=== PATIENT | male | born 1960 | race Caucasian/White ===

== ENCOUNTER → 2016-11-28 | Outpatient (CLI) | payer OTHER ==
[~2016-11-28] MED LIST: BACL20TA PO; CLB/200 PO; EVER5TAB PO; HYDR-1838 PO; HYDR25TA4 PO; LYR50 PO; NIFE1TAB55 PO; ONDA8TAB6 PO; POLY335040 PO; POTA20TA16 PO; PREG100C PO; PROP120C PO; SIMV40TA2 PO; TEMA15CA4 PO; TEMO100I; TRAM-10 PO; XLD/500 PO
== END | disposition home or self-care (01) ==
LOC: C.LAB1850 16:49
PROVIDERS: ATTEND Internal Medicine
DX: M10.9 Gout, unspecified (principal)

== ENCOUNTER → 2016-12-11 | Outpatient (CLI) | payer OTHER ==
[2016-12-11 12:23] LABS: BASO % 0.5 %; BASO ABS # 0.03 K/uL (0-0.2); COMPLETE YES; EOS % 2.8 %; HEMATOCRIT 43.5 % (42-52); IG% 0.3 %; LYMPH % 27.5 %; LYMPH ABS # 1.65 K/uL (1.2-3.4); MEAN CELL VOLUME 95.4 fL (80-100); MEAN CORPUSCULAR HEMOGLOBIN 33.6 pg (25-34); MEAN CORPUSCULAR HGB CONC 35.2 g/dl (32-36); MEAN PLATELET VOLUME 10.6 fL (7.4-10.4); MONO % 12.6 %; NEUT % 56.3 %; PLATELET COUNT 277 K/uL (130-400); RED BLOOD COUNT 4.56 M/uL (4.7-6.1); WHITE BLOOD COUNT 6.01 K/uL (4.8-10.8)
[2016-12-11 12:37] LABS: ALT/SGPT 73 U/L (12-78); AST/SGOT 38 U/L (15-37); BLOOD UREA NITROGEN 17 mg/dl (7-18); BUN/CREATININE RATIO 13.8 (10-20); CALCIUM 9.3 mg/dl (8.5-10.1); CARBON DIOXIDE 28 mmol/L (21-32); CHLORIDE 103 mmol/L (98-107); CHOLESTEROL 169 mg/dl (0-200); GLUCOSE 115 mg/dl (70-99); POTASSIUM 3.4 mmol/L (3.5-5.1); SODIUM 141 mmol/L (136-145); TRIGLYCERIDES 226 mg/dl (0-150); VERY LOW DENSITY LIPOPROT CALC 45 mg/dl
[2016-12-11 12:47] LABS: ALB/GLOB RATIO 1.1 (0.9-2); ALKALINE PHOSPHATASE 77 U/L (45-117); CHOLESTEROL/HDL RATIO 4.1; HDL CHOLESTEROL 41 mg/dl; LDL CHOLESTEROL CALCULATED 83 mg/dl
[2016-12-11 12:52] LABS: ESTIMATED AVERAGE GLUCOSE 126 mg/dl; HA1C FLAG Normal (Normal)
== END | disposition home or self-care (01) ==
LOC: C.LABBFT 09:09
PROVIDERS: ATTEND Internal Medicine
DX: E78.00 Pure hypercholesterolemia, unspecified (principal); I10 Essential (primary) hypertension; R73.9 Hyperglycemia, unspecified

== ENCOUNTER → 2017-02-13 | Outpatient (CLI) | payer OTHER ==
[~2017-02-13] MED LIST changes: -EVER5TAB PO; +GADAVIST IV PRN; -HYDR-1838 PO; -TEMA15CA4 PO
--- NOTE | 2017-02-13 16:33 | DIAGNOSTIC IMAGING REPORT ---
MRI OF THE LUMBAR SPINE WITH AND WITHOUT CONTRAST CLINICAL HISTORY: Lumbago. Lumbar radiculopathy. Cancer history. COMPARISON STUDY: No previous studies for comparison. TECHNIQUE: Utilizing a 1.5 Tsering magnet and dedicated coil, multiplanar, multiecho imaging of the lumbar spine was performed before and after uneventful IV administration of 12.5 mL of Gadavist. FINDINGS: For purposes of numbering on this exam, the L5-S1 disc space is assigned to axial image 23 of 25. Alignment of the lumbar spine is anatomic. Vertebral body heights are maintained. A 1.3 cm T1 and T2 hypointense abnormality along the superior endplate of L4 suggests a Schmorl's node. There is a 1.4 cm T1 hypointense, slightly T1 hyperintense lesion within the left aspect of S1. There is also an indeterminate 9 mm lesion within the L1 vertebral body and a 7 mm lesion within the T12 vertebral body. At most, there is minimal enhancement of these lesions. There is no intracanalicular mass or fluid collection. There is no abnormal enhancement within the lumbar canal. L1-2: The central canal and neural foramen are patent. L2-3: There is disc bulge eccentric to the left. There is mild narrowing of the left lateral recess and left neural foramen. L3-4: There is mild disc bulge. There is facet arthrosis. Central canal and neural foramen are patent. L4-5: The central canal and neural foramen are patent. L5-S1: There is disc space narrowing with minimal disc bulge. Central canal is patent. There is facet arthrosis. There is mild to moderate narrowing of both neural foramen. IMPRESSION: 1. Mild multilevel degenerative disc disease and facet arthrosis. No central canal stenosis. [id number] multilevel neural foraminal stenosis, as described above. 2. Several indeterminate osseous lesions within the spine, the largest of which is a 1.4 cm S1 lesion. These may be benign; however, metastatic disease is within the differential. A whole body bone scan may be of benefit in further evaluation. Electronically signed by: Tan Benitez M.D. 02/13/2017 4:31 PM Dictated Date/Time: 02/13/2017 12:43 PM
== END | disposition home or self-care (01) ==
LOC: C.MRIBC 09:46
PROVIDERS: ATTEND Physician Assistant
DX: M51.16 Intervertebral disc disorders with radiculopathy, lumbar region (principal)

== ENCOUNTER → 2017-07-12 | Outpatient (CLI) | payer OTHER ==
[~2017-07-12] MED LIST changes: -GADAVIST IV PRN; -LYR50 PO
[2017-07-12 12:16] LABS: BASO % 0.8 %; BASO ABS # 0.04 K/uL (0-0.2); COMPLETE YES; EOS % 3.8 %; IG% 0.4 %; LYMPH % 28.9 %; LYMPH ABS # 1.43 K/uL (1.2-3.4); MEAN CELL VOLUME 96.2 fL (80-100); MEAN CORPUSCULAR HEMOGLOBIN 32.5 pg (25-34); MEAN CORPUSCULAR HGB CONC 33.8 g/dl (32-36); MEAN PLATELET VOLUME 10.7 fL (7.4-10.4); MONO % 12.1 %; PLATELET COUNT 234 K/uL (130-400); RED BLOOD COUNT 4.68 M/uL (4.7-6.1); WHITE BLOOD COUNT 4.94 K/uL (4.8-10.8)
[2017-07-12 12:52] LABS: ESTIMATED AVERAGE GLUCOSE 126 mg/dl; HA1C FLAG Normal (Normal)
[2017-07-12 12:56] LABS: ALT/SGPT 61 U/L (12-78); AST/SGOT 31 U/L (15-37); BLOOD UREA NITROGEN 16 mg/dl (7-18); BUN/CREATININE RATIO 13.1 (10-20); CALCIUM 8.8 mg/dl (8.5-10.1); CARBON DIOXIDE 31 mmol/L (21-32); CHLORIDE 104 mmol/L (98-107); GLUCOSE 118 mg/dl (70-99); POTASSIUM 3.2 mmol/L (3.5-5.1); SODIUM 141 mmol/L (136-145)
[2017-07-12 12:59] LABS: ALB/GLOB RATIO 1.1 (0.9-2); ALKALINE PHOSPHATASE 74 U/L (45-117); CHOLESTEROL 165 mg/dl (0-200); CHOLESTEROL/HDL RATIO 3.9; HDL CHOLESTEROL 42 mg/dl; LDL CHOLESTEROL CALCULATED 83 mg/dl; TRIGLYCERIDES 201 mg/dl (0-150); VERY LOW DENSITY LIPOPROT CALC 40 mg/dl
== END | disposition home or self-care (01) ==
LOC: C.LABBFT 08:08
PROVIDERS: ATTEND Internal Medicine
DX: M10.9 Gout, unspecified (principal); E78.00 Pure hypercholesterolemia, unspecified; R73.01 Impaired fasting glucose; I10 Essential (primary) hypertension

== ENCOUNTER → 2017-10-22 | Outpatient (CLI) | payer OTHER ==
[~2017-10-22] VITALS: Ht 179.1 cm; Wt 132.5 kg
[~2017-10-22] MED LIST changes: -NIFE1TAB55 PO; +NIFE1TAB56 PO
[2017-10-22 13:18] VITALS: BP 127/81; PULSE 62; Ht 179.1 cm; Wt 132.5 kg
== END | disposition home or self-care (01) ==
LOC: C.NEUR 12:44
PROVIDERS: ATTEND Internal Medicine Pulmonary Disease
DX: Z86.69 Personal history of other diseases of the nervous system and sense organs (principal); E66.9 Obesity, unspecified; R53.83 Other fatigue

== ENCOUNTER → 2017-11-06 | Outpatient (CLI) | payer OTHER ==
--- NOTE | 2017-11-07 06:24 | PAP/PSG TECHNICIAN REPORT ---
[facility] Taste Tester Polysomnogram Report Study name: None Report date: 11/07/2017 Study date: 11/06/2017 Referring Physician: DR. OSUNA Name: OSMAN SCRUGGS Interpreting Physician: Richy Osuna M.D. Date of : 1960 Taste Tester: Akshat Griffiths RPSGT. Sex: Male Age: 57 StudyType: PSG PAP Weight: 292 lbs 18.5 inches Height: 57 years, Height 5' 10.5" Neck Circum: BMI: 41.3 Medications: ALLOPURINOL 100 MG, BACLOFEN 20 MG, CAPECITABINE 500 MG, CELECOXIB 200 MG, HYDROCHLOROTHIAZIDE 25 MG, KLOR-CON M20, LYRICA 50 MG, NIFEDIPINE ER OSMOTIC RELEASE 60 MG, PREDNISONE 20 MG, PROPRANOLOL HCL ER 120 MG, SIMVASTATIN 40 MG, TEMOZOLOMIDE 100 MG, TRAMADOL HCL 50 MG Patient History PATIENT HAD A SLEEP STUDY DONE IN 2009 AND WAS POSITIVE FOR JC. HE HAD A CPAP TITRATION DONE AND WAS PUT ON 6CWP. HE ONLY WORE HIS CPAP FOR ABOUT A YEAR THEN DISCONTINUED USE OF IT. HE DISPLAYS SYMPTOMS OF SLEEP APNEA AND IS HERE FOR A CPAP TITRATION. ESS = 16 RM 2 Parameters Monitored NPSG: E1-M2, E2-M1, Fp1-M2, Fp2-M1, F3-M2, F4-M2, F4-M1, C3-M2, C4-M2, C4-M1, O1-M2, O2-M2, O2-M1, T3-M2, T4-M1, P3-M2, P4-M1, CHIN1, CHIN2, HR, EKG, Legs, PFLOW, SNOR, FLOW, CFLOW, Tidal Volume, THOR, ABDO, SpO2, PLTH, CPRESS, ETCO2 Wave, ETCO2, pH Sleep Architecture Sleep Stages Time at Lights Off 10:30:53 PM STAGES Time (min.) TST (%) Time at Lights On 6:00:53 AM Wake 34.5 -- Total Recording Time (TRT) 450.50 min. N1 15.5 4 Total Sleep Period (TSP) 447.5 min. N2 277.5 67 Total Sleep Time (TST) 415.5min. N3 12.0 3 Awake Time 34.5 min. REM 110.5 27 Wake after Sleep Onset 32.0 min. Sleep Efficiency (SE) 92 % Sleep Onset Latency (CARRIE) 2.5 min. Number of Stage 1 Shifts None Awakenings 31 Stage Changes 101 Number of REM periods 6 REM 110.5 27 REM Latency 76.0 min. NREM 305.0 73 Body Position Analysis Supine Right Left Side Prone Vertical Total Sleep Time (min.) 66.8 0.0 366.0 366.00 0.0 0.0 Total Sleep Time (%) 12% 0% 88% 88 0% N/A% Total Sleep Time REM (min.) 0.0 0.0 110.5 None 0.0 0.0 Total Sleep Time NREM (min.) 49.5 0.0 255.5 None 0.0 0.0 Intermittent Wake (min.) 17.3 0.0 17.2 None 0.0 0.0 Total Sleep Period (%) 14% None None None None None Arousals Myoclonus (PLM) * Events Count Index Events Count Index Spontaneous 42 6 Events Awake (PLMW) 33 57.4 Respiratory 29 5.1 Events Asleep w/ Arousal (PLMA) 12 1.7 PLM 11 2 Events Asleep w/o Arousal (PLMS) 74 10.7 Snoring 2 0 Total Asleep 86 12.4 Total 84 12 Total 119 16 Respiratory Analysis * CA OA MA CH H RERA Total Count 59 14 4 0 66 0 143 Index 8.5 2.0 0.6 0 9.5 0 20.6 Mean Duration 23.9 22.7 40.6 0.00 23.4 0.0 24.0 Longest Duration 51.8 35.6 47.5 0.00 47.5 0.0 55.0 Respiratory Event Summary Total Supine ~Supine Right Left Prone REM NREM Apneas Count 77 46 31 N/A 31 N/A 0 77 Index 11.1 56 5 N/A 5.1 N/A 0 15 Hypopneas (4% Desat) Count 66 7 59 N/A 59 N/A 14 52 Index 9.5 8.5 10 N/A 9.7 N/A 7.6 10.2 Apneas & All Hypopneas Count 143 53 90 N/A 90 N/A 14 129 Index 20.6 64 15 N/A 15 N/A 7.6 25.4 Respiratory Events (Stabber+All Hyp+RERA) Count 143 53 90 N/A 90 N/A 14 129 Index 20.6 64 15 N/A 14.8 N/A 7.6 25.4 Respiratory Related Arousal Count 29 53 13 N/A 13 N/A 0 35 Index 5.1 27 2 N/A 2 N/A 0 7 Snoring Analysis Supine Right Left Prone REM NREM Total Snore duration 7.5 min Snores count 5 N/A 334 N/A 6 333 339 Snore mean duration 1.3 Sec Snores index 6 N/A 55 N/A 3.3 65.5 49.0 TST with snoring (%) 1.8% Desaturation Event Summary: Minimum %SpO2 Event Count Mean/Min/Max Duration(sec.) Desaturation Index % Time In Bed > 90 128 30.3 / 9.0 / 60.0 47.9 35.6 86 - 90 36 30.1 / 10.0 / 55.8 9.5 50.3 81 - 85 1 63.1 / 63.1 / 63.1 1.3 10.4 76 - 80 0 N/A 0.0 3.0 71 - 75 1 78.6 / 78.6 / 78.6 44.6 0.3 66 - 70 0 N/A 0.0 0.2 61 - 65 0 N/A 0.0 0.2 56 - 60 0 N/A 0.0 0.0 51 - 55 0 N/A 0.0 0.0 < 50 0 N/A 0.0 0.0 Total REM NREM Awake <50% 0.0 min. 0.0 min. 0.0 min. 0.0 min. 51 - 60% 0.0 min. 0.0 min. 0.0 min. 0.0 min. 61 - 70% 1.7 min. 1.7 min. 0.0 min. 0.0 min. 71 - 80% 14.7 min. 7.1 min. 5.3 min. 2.3 min. 81 - 90% 273.2 min. 91.7 min. 173.7 min. 7.8 min. 91 - 100% 160.3 min. 10.0 min. 126.0 min. 24.4 min. Average 89 87 90 92 Minimum SpO2 61 61 75 75 Desaturation Event Index 19.5 7.6 24.8 15.7 # Desat. Events below 89% 124 14 105 5 Time(%) with Saturation below 89% 40.7 14.7 24.3 1.7 Time(min.) with Saturation below 89% 183.4 66.3 109.5 7.6 Time (mins) REM (mins) NREM (mins) % of TST SpO2 Below 90% 130 14 N116 54.8 SpO2 Below 88% 59 0 0 30 Heart Rate Analysis Min (bpm) Max (bpm) Average (bpm) Awake 49 71 55 NREM 49 63 53 REM 50 62 54 Overall 49 63 53 Supplemental O2 Values Minimum O2 level: None Value Start Time End Time Taste Tester Comments Mr. Scruggs slept in the left and supine positions. PVC's noted. Leg movements noted. No bruxism noted. CPAP was initiated at +4 CMH2O and up-titrated to an level of +[id number]. I switched to BIPAP due to continued central apneas in N2 sleep and high mask leak. I started BIPAP at 11/7 and then added a rate of 12 due to central apneas. I increased the BIPAP up to 18/12 with a rate of 18 due to apneas and some hypops. A [employer] Simplus size large mask was used during titration Mr. Scruggs awoke to use the restroom 0 times during the night. Mr. Scruggs stated I did not sleep as well as I do when I am in my own bed. Patient showed central and mixed sleep apnea predominantly in the supine position. This caused me to switch to BIPAP and added a rate, which still didn't seem to help. Patient had more obstructive apnea on his side, which CPAP seemed to work ok. The final report will be interpreted and signed by a sleep physician. The completed physician report will then be placed in the patient medical record. Therapy Event: Therapy (cm H20) 4 6 7 8 9 10 11 Total Time at Pressure (min.) 17.4 10.2 6.5 18.3 19.8 11.5 88.8 TST at Pressure (min.) 9.4 10.2 6.5 18.3 19.8 11.5 86.3 # Periods 1 1 1 1 1 1 1 Sleep Onset (min.) 2.5 0.0 0.0 0.0 0.0 0.0 0.0 REM Onset (min.) N/A N/A N/A N/A N/A 6.4 85.6 Sleep Efficiency % 54 100 100 100 100 100 97 Wakefulness (%) 46.0 0.0 0.0 0.0 0.0 0.0 2.8 Wakefulness (min.) 8.0 0.0 0.0 0.0 0.0 0.0 2.5 NREM 1 (%) 14.4 0.0 0.0 0.0 0.0 0.0 1.7 NREM 1 (min.) 2.5 0.0 0.0 0.0 0.0 0.0 1.5 NREM 2 (%) 39.6 100.0 100.0 75.3 94.5 0.0 91.9 NREM 2 (min.) 6.9 10.2 6.5 13.8 18.7 0.0 81.6 NREM 3 (%) 0.0 0.0 0.0 24.7 5.5 55.7 0.0 NREM 3 (min.) 0.0 0.0 0.0 4.5 1.1 6.4 0.0 REM (%) 0.0 0.0 0.0 0.0 0.0 44.3 3.6 REM (min.) 0.0 0.0 0.0 0.0 0.0 5.1 3.2 # Arousals 6 3 2 1 0 0 19 Arousal Index 38.4 17.7 18.4 3.3 0.0 0.0 13.2 # Snore 5 43 24 150 85 0 11 Snore Index 32.0 253.2 221.1 493.1 258.1 0.0 7.7 AHI 89.6 70.7 64.5 13.1 3.0 10.4 17.4 AHI Supine 101.6 N/A N/A N/A N/A N/A 112.4 AHI Non-Supine 87.8 70.7 64.5 13.1 3.0 10.4 16.2 NREM AHI 89.6 70.7 64.5 13.1 3.0 0.0 15.9 REM AHI N/A N/A N/A N/A N/A 23.5 56.8 RDI 89.6 70.7 64.5 13.1 3.0 10.4 17.4 # Obstructive 10 2 0 0 0 0 0 # Central Ap 2 0 0 0 0 0 7 # Mixed 1 0 0 0 0 0 0 # Hypopneas 1 10 7 4 1 2 18 RERAS 0 0 0 0 0 0 0 Total Respiratory Events 14 12 7 4 1 2 25 Time Below SpO2 89.00% (min.) 2.9 6.3 4.3 16.3 17.4 11.4 20.3 Mean NREM SpO2 (%) 90 86 86 86 87 88 90 Mean REM SpO2 (%) N/A N/A N/A N/A N/A 74 87 Mean Sleep SpO2 (%) 90 86 86 86 87 82 90 Min NREM SpO2 (%) 75 78 81 84 85 86 83 Min REM SpO2 (%) N/A N/A N/A N/A N/A 61 82 Position Supine (min.) 1.2 0.0 0.0 0.0 0.0 0.0 1.1 Position Non-supine (min.) 8.2 10.2 6.5 18.3 19.8 11.5 85.2 LM Index Sleep 0.0 0.0 0.0 3.3 0.0 0.0 14.6 LM Index NREM 0.0 0.0 0.0 3.3 0.0 0.0 15.2 LM Index REM N/A N/A N/A N/A N/A 0.0 0.0 Mean Heart Rate (bpm) 53 53 53 54 52 55 52 Min Heart Rate (bpm) 52 52 51 52 51 51 50 Therapy (cm H20) 12 13 11/7 12/8 14/8 16/10 18/12 Total Time at Pressure (min.) 44.8 80.1 12.3 8.6 79.5 5.2 47.1 TST at Pressure (min.) 38.3 77.6 11.3 8.6 71.0 4.2 42.6 # Periods 1 1 1 1 1 1 1 Sleep Onset (min.) 0.0 0.0 0.0 0.0 0.0 0.0 0.0 REM Onset (min.) 0.0 0.0 N/A 3.0 0.0 N/A 20.6 Sleep Efficiency % 85 96 91 100 89 80 90 Wakefulness (%) 14.5 3.1 8.2 0.0 10.7 19.1 9.6 Wakefulness (min.) 6.5 2.5 1.0 0.0 8.5 1.0 4.5 NREM 1 (%) 4.5 3.7 16.3 0.0 4.4 0.0 2.1 NREM 1 (min.) 2.0 3.0 2.0 0.0 3.5 0.0 1.0 NREM 2 (%) 14.3 72.7 75.5 34.8 54.9 80.9 32.1 NREM 2 (min.) 6.4 58.2 9.3 3.0 43.7 4.2 15.1 NREM 3 (%) 0.0 0.0 0.0 0.0 0.0 0.0 0.0 NREM 3 (min.) 0.0 0.0 0.0 0.0 0.0 0.0 0.0 REM (%) 66.7 20.4 0.0 65.2 30.0 0.0 56.3 REM (min.) 29.9 16.3 0.0 5.6 23.9 0.0 26.5 # Arousals 5 15 9 0 15 3 6 Arousal Index 7.8 11.6 48.0 0.0 12.7 42.5 8.5 # Snore 4 4 4 1 7 0 1 Snore Index 6.3 3.1 21.3 6.9 5.9 0.0 1.4 AHI 18.8 8.5 53.3 6.9 23.7 70.8 15.5 AHI Supine 30.0 73.6 40.4 N/A 67.2 70.8 61.7 AHI Non-Supine 18.2 3.3 67.7 6.9 7.0 N/A 1.8 NREM AHI 64.2 7.8 53.3 0.0 33.1 70.8 41.0 REM AHI 6.0 11.0 N/A 10.7 5.0 N/A 0.0 RDI 18.8 8.5 53.3 6.9 23.7 70.8 15.5 # Obstructive 0 0 2 0 0 0 0 # Central Ap 9 8 3 0 18 4 8 # Mixed 0 0 3 0 0 0 0 # Hypopneas 3 3 2 1 10 1 3 RERAS 0 0 0 0 0 0 0 Total Respiratory Events 12 11 10 1 28 5 11 Time Below SpO2 89.00% (min.) 24.2 3.4 4.3 8.6 38.3 1.2 16.7 Mean NREM SpO2 (%) 92 92 90 86 89 91 90 Mean REM SpO2 (%) 87 90 N/A 83 86 N/A 89 Mean Sleep SpO2 (%) 88 91 90 84 88 91 89 Min NREM SpO2 (%) 82 83 75 85 76 77 75 Min REM SpO2 (%) 78 84 N/A 77 78 N/A 88 Position Supine (min.) 2.0 5.7 5.9 0.0 19.6 4.2 9.7 Position Non-supine (min.) 36.3 71.9 5.3 8.6 51.4 0.0 32.9 LM Index Sleep 1.6 40.2 26.6 0.0 5.1 0.0 0.0 LM Index NREM 7.1 50.0 26.6 0.0 6.4 0.0 0.0 LM Index REM 0.0 3.7 N/A 0.0 2.5 N/A 0.0 Mean Heart Rate (bpm) 53 52 53 54 54 52 55 Min Heart Rate (bpm) 51 49 50 51 50 50 50
--- NOTE | 2017-11-07 16:05 | POLYSOMNOGRAPH REPORT ---
CLINICAL DATA: A 57-year-old male with BMI of 41.3 referred by myself, Fide Cavazos and Dr. Perez. He had a sleep study in 2006, which showed sleep apnea. He was on CPAP after a titration and was started at 6 cm of water pressure, which he used for 1 year and then discontinued it. He is having recurrent symptoms of sleep apnea. His [place] sleepiness score is 16/24. SLEEP ARCHITECTURE: Total sleep period was 447.5 minutes. Total sleep time was 415.5 minutes divided between 305 minutes of non-REM sleep and 110.5 minutes of REM sleep. Sleep onset latency was 2.5 minutes. REM latency was 76 minutes. Sleep efficiency was 92%. Wake after sleep onset was 32 minutes. Sleep consisted of stage N1 4%, stage N2 67%, stage N3 3%, and REM 27%. AROUSAL DATA: Eighty four arousals recorded for an index of 12 per hour. Twenty nine were due to respiratory events. PERIODIC LIMB MOVEMENT DATA: Eighty six limb movements during sleep were noted for an index of 12.4 per hour with arousal index of 1.7 per hour. RESPIRATORY DATA: Moderate sleep apnea was documented. There were 59 central, 14 obstructive, and 4 mixed apneic episodes. The longest duration of apnea was 51.8 seconds. There were 66 hypopneic episodes. The longest duration of hypopnea was 47.5 seconds. OXIMETRY DATA: Nocturnal hypoxemia was seen. Oxygen billy was 61% during REM. The mean saturation was 89%. Time below 88% was 59 minutes. ECHOCARDIOGRAM: Heart rate ranged from 49-63 beats per minute. PVCs were noted. [employer] CONSULTANT'S COMMENTS AND TREATMENT SUMMARY: The patient slept in the left and supine positions. CPAP was started at 4 cm of water and titrated up to 13 cm of water pressure. Due to central apneic episodes and high mask leak, the patient was changed to BIPAP at 11/7 and was titrated up to 18/12 with a backup rate of 18 due to apneas and hypopneas. The patient had primarily central apneic episodes and mixed apneic episodes while supine. When he was on his side, CPAP seem to work reasonably well. At his final pressure setting of 18/12 with a backup rate of 18, the patient had an AHI of 15.5. At BiPAP 12/8, the patient had an AHI of 6.9. IMPRESSION: Obstructive sleep apnea/hypopnea with treatment onset central apneic episodes consistent with complex sleep apnea. The patient continued to have central apneic episodes in spite of BIPAP with a backup rate. RECOMMENDATIONS: The patient may benefit from use of auto CPAP with download of compliance and effectiveness data after for 4-6 weeks. If that is not effective, then ASV titration may be needed. Clinical correlation is needed. [facility]
== END | disposition home or self-care (01) ==
LOC: C.NEUR 21:00
PROVIDERS: ATTEND Physician Assistant Medical
DX: G47.33 Obstructive sleep apnea (adult) (pediatric) (principal)

== ENCOUNTER → 2018-02-17 | Outpatient (CLI) | payer OTHER ==
[~2018-02-17] MED LIST changes: -NIFE1TAB56 PO; +NIFE60TA66 PO; +ONDA-170 PO; -ONDA8TAB6 PO; +POTA-639 PO; -POTA20TA16 PO
[2018-02-17 12:56] LABS: BASO % 0.6 %; BASO ABS # 0.03 K/uL (0-0.2); EOS % 3.3 %; EOS ABS # 0.17 K/uL (0-0.5); HEMATOCRIT 42.9 % (42-52); HEMOGLOBIN 14.9 g/dL (14.0-18.0); IG# 0.02 K/uL (0.00-0.02); LYMPH % 26.6 %; LYMPH ABS # 1.36 K/uL (1.2-3.4); MEAN CELL VOLUME 91.1 fL (80-100); MEAN CORPUSCULAR HEMOGLOBIN 31.6 pg (25-34); MEAN CORPUSCULAR HGB CONC 34.7 g/dl (32-36); MEAN PLATELET VOLUME 10.2 fL (7.4-10.4); MONO ABS # 0.56 K/uL (0.11-0.59); NEUT % 58.1 %; NEUT ABS # 2.97 K/uL (1.4-6.5); PLATELET COUNT 214 K/uL (130-400); RED CELL DISTRIBUTION WIDTH CV 13.1 % (11.5-14.5); RED CELL DISTRIBUTION WIDTH SD 43.4 fL (36.4-46.3); WHITE BLOOD COUNT 5.11 K/uL (4.8-10.8)
[2018-02-17 12:58] LABS: ALBUMIN 3.9 gm/dl (3.4-5.0); ALT/SGPT 61 U/L (12-78); AST/SGOT 38 U/L (15-37); BLOOD UREA NITROGEN 16 mg/dl (7-18); CALCIUM 8.8 mg/dl (8.5-10.1); CARBON DIOXIDE 31 mmol/L (21-32); CREATININE 1.19 mg/dl (0.60-1.40); GLUCOSE 124 mg/dl (70-99); POTASSIUM 3.1 mmol/L (3.5-5.1); SODIUM 139 mmol/L (136-145)
[2018-02-17 13:01] LABS: ALKALINE PHOSPHATASE 68 U/L (45-117); CHOLESTEROL 150 mg/dl (0-200); LDL CHOLESTEROL CALCULATED 67 mg/dl; TOTAL PROTEIN 7.7 gm/dl (6.4-8.2)
[2018-02-17 13:03] LABS: HEMOGLOBIN A1C 6.4 % (4.5-5.6)
== END | disposition home or self-care (01) ==
LOC: C.LABBFT 08:26
PROVIDERS: ATTEND Internal Medicine
DX: R73.01 Impaired fasting glucose (principal); Z12.5 Encounter for screening for malignant neoplasm of prostate; E78.00 Pure hypercholesterolemia, unspecified